=== PATIENT | male | born 1965 | race Hispanic/Latino ===

== ENCOUNTER → 2024-04-15 | Day surgery (SDC) | payer OTHER ==
[~2024-04-15] MED LIST: LIDOCAINE HCL 2% LOCAL INJ 5 ML SDV VIAL INJ ONE; METFORMIN HCL500 MG PO; PANTOPRAZOLE SO40 MG PO; PROPOFOL IV EMULSION 10 MG/ML 20 ML VIAL ONE
[2024-04-15] MEDS: LACTATED RINGER'S 1,000 ML ONE (08:29)
[2024-04-15 11:25] VITALS: BP 127/88; PULSE 65; RESP 16; O2SAT 99
== END | disposition home or self-care (01) ==
LOC: OR 07:30
PROVIDERS: ATTEND Internal Medicine Gastroenterology
DX: Z12.11 Encounter for screening for malignant neoplasm of colon (principal); D12.3 Benign neoplasm of transverse colon; D12.5 Benign neoplasm of sigmoid colon; K57.30 Diverticulosis of large intestine without perforation or abscess without bleeding; K64.8 Other hemorrhoids; K21.9 Gastro-esophageal reflux disease without esophagitis; I10 Essential (primary) hypertension; E78.5 Hyperlipidemia, unspecified; E11.9 Type 2 diabetes mellitus without complications; Z01.810 Encounter for preprocedural cardiovascular examination; Z79.84 Long term (current) use of oral hypoglycemic drugs
CPT/HCPCS: 45385; 93005; J2001; J2704; J7121; 45378